=== PATIENT | male | born 1995 | race Caucasian/White ===

== ENCOUNTER 2021-03-20 15:40 | Emergency (ER) | payer SELFPAY ==
--- NOTE | ~2021-03-20 | CT_ITS ---
EXAMINATION: CT abdomen pelvis w con DATE: 03/20/2021 18:42 INDICATION: Abdominal pain. TECHNIQUE: Computed tomography (CT) of the abdomen and pelvis was performed with 100 mL Omnipaque 350 intravenous contrast. Automated exposure control and iterative reconstruction technique were employe d. The dose-length product was 215.36 mGy-cm. COMPARISON: None. FINDINGS: The visualized portions of the lung bases are clear without pneumonia or pleural effusion. The heart size is normal. No pericardial effusion. There is a 12 mm low-attenuation mass in right hep atic lobe. The gallbladder, spleen, pancreas, adrenal glands, and left kidney are normal. There is a 4 mm cyst in right kidney. There are no dilated loops of bowel. The appendix is not visualized. There are no pathologically enlarged lymph nodes. There is no free intraperitoneal fluid. There is a 10 mm sclerotic lesion in right femoral head, likely a benign bone island. IMPRESSION: 1. 12 mm liver mass, which may be benign or less likely malignant. Abdomen MRI without and with contr ast is recommended. Reviewed, dictated and finalized at location A. IMPRESSION: 1. 12 mm liver mass, which may be benign or less likely malignant. Abdomen MRI without and with contrast is recommended.
[2021-03-20 15:41] VITALS: BP 133/76; PULSE 120; RESP 18; TEMP 36.9; O2SAT 100
[2021-03-20 16:14] LABS: Basophils Percent Auto 0.3 % (0.2-1.2); Eosinophils Percent Auto 0.1 % (0-4.4); Hemoglobin 16.6 g/dL (14.0-18.0); Immature Granulocyte Absolute 0.08 K/mm3 (0.00-0.031); Immature Granulocyte Percent A 0.6 % (0-0.5); Lymphocytes Absolute Auto 1.61 K/mm3 (0.9-3.2); Lymphocytes Percent Auto 11.9 % (18.3-44.2); Mean Corpuscular HGB Conc 36.1 g/dl (32-36); Mean Corpuscular Hemoglobin 30.7 pg (26-34); Mean Corpuscular Volume 85.2 fl (80-100); Mean Platelet Volume 11.1 fl (7.4-10.4); Monocytes Percent Auto 7.5 % (2.6-8.5); Neutrophils Absolute Auto 10.8 K/mm3 (1.3-6.7); Neutrophils Percent Auto 79.6 % (45.5-73.1); Platelet Count Result 260 k/mm3 (150-375); Red Cell Distribution Width 12.2 % (11.5-14.5); White Blood Count 13.6 K/mm3 (4.5-10.0)
[2021-03-20 16:26] VITALS: BP 127/84; PULSE 89; RESP 18; O2SAT 98
--- NOTE | 2021-03-20 16:39 | PC.NURSE ---
Dr. Cordero at bedside for pt assessment.
[2021-03-20 16:48] VITALS: BP 137/92; PULSE 88; RESP 15; O2SAT 99
[2021-03-20 17:18] LABS: Alanine Aminotransferase 15 U/L (4-50); Albumin Level 4.9 g/dL (3.5-5.1); Alkaline Phosphatase 46 U/L (38-126); Anion Gap 10 mmol/L (8-16); Aspartate Amino Transferase 29 U/L (17-59); Bilirubin,Total 1.3 mg/dL (0.2-1.3); Blood Urea Nitrogen 14 mg/dL (9-20); Calcium 9.7 mg/dL (8.4-10.2); Carbon Dioxide 21 mmol/L (22-30); Chloride 105 mmol/L (98-107); Estimated CRCL calculation 151 ml/min; Estimated Glomerular Filt Rate > 60; Glucose 94 mg/dL (65-110); Lipase 50 U/L (23-300); Potassium 4.3 mmol/L (3.4-5.0); Sodium 136 mmol/L (137-145)
[2021-03-20 17:32] LABS: Add Urine Microscopic? YES; Amorphous Sediment Urine Few; Appearance Urine Turbid (Clear); Bacteria Urine Trace /hpf; Bilirubin Urine Negative (Negative); Blood Urine Negative (Negative); Color Urine Yellow (Yellow); Glucose Urine UA Negative (Negative); Ketones Urine 2+ mg/dL (Negative); Leukocyte Esterase Ur Negative LEU/UL (Negative); Mucus Urine Heavy /lpf; Nitrate Urine Negative (Negative); Protein Urine 2+ mg/dL (Negative)
[2021-03-20 17:37] VITALS: BP 114/75; PULSE 85; RESP 15; O2SAT 100
[2021-03-20] MEDS: SODIUM CHLORIDE 0.9% IV 1,000 ML 999 ML IV CONT (17:38)
[2021-03-20] MEDS: ONDANSETRON INJ 4 MG/2 ML VIAL IV PUSH (17:38)
[2021-03-20 18:08] LABS: Specific Grav Ur 1.033 (1.001-1.035)
--- NOTE | 2021-03-20 19:17 | PC.NURSE ---
Report given to JAYLEN Watkins.
--- NOTE | 2021-03-20 19:20 | ED.ABDPAIN ---
HPI - Abdominal Pain General Chief Complaint: Abdominal Pain Stated Complaint: N/V Time Seen by Provider: 03/20/21 16:30 Source: patient Mode of arrival: ambulatory Limitations: no limitations History of Present Illness HPI narrative: 25-year-old with no major problem here with complaints of nausea, vomiting and diarrhea and intermittent abdominal pain on and off for 1 week. Patient states his [id number] had similar symptoms which resolved 2 days ago. Patient states that he is unable to keep fluids down. However he states that he has taken his [id number] Zofran which helped him with his nausea. He denies alcohol use but uses marijuana on a regular basis his last use was 7 days ago. MD elicited complaint: abdominal pain Pertinent past history: none Onset (ago): week(s) (1) Pain Consistency: constant Location: diffuse Quality: cramping Migration to: no migration Exacerbating factors: nothing Relieving factors: nothing Context: confirms sick contacts Associated symptoms: nausea, vomiting and diarrhea Related Data Allergies Allergy/AdvReac Type Severity Reaction Status Date / Time No Known Allergies Allergy Verified 03/20/21 15:50 Review of Systems Review of Systems: All systems reviewed & are unremarkable except as noted in HPI and below Constitutional: Constitutional: Reports no additional constitutional complaints Eyes: Eyes: Reports no additional eye complaints ENT: Reports system reviewed and no additional complaints, except as documented Cardiovascular: Cardiovascular: Reports no additional cardiovascular complaints Respiratory: Respiratory: Reports no additional respiratory complaints Gastrointestinal: Gastrointestinal: Reports as per HPI Musculoskeletal: Musculoskeletal: Reports no additional musculoskeletal complaints Integumentary/Breasts: Skin/Breast: Reports system reviewed and no additional complaints, except as docu Exam Narrative: GENERAL: Well-appearing, well-nourished, and in no acute distress. HEAD: Normocephalic, atraumatic. EYES: PERRLA and EOMI. NECK: Supple. CHEST: Clear to auscultation. No respiratory distress. HEART: Regular rate and rhythm. No murmur heard. Normal peripheral pulses. ABDOMEN: Soft, nontender, nondistended, normal active bowel sounds. EXTREMITIES: Normal range of motion. No edema. SKIN: Warm, dry, no rash. NEURO: No focal deficits. Alert and oriented x3. PSYCH: Normal mood and affect. Course Course Emergency Course: Patient was given 1 L of normal saline, along with Zofran. His started feeling much better. He had no further episodes of nausea or vomiting. I discussed lab, CT findings with the patient and the family at bedside. Informed him about the lesion on his liver. Advised him to follow-up with his primary doctor or on-call doctor. Vital Signs Vital signs: Vital Signs Temperature 36.9 C 03/20/21 15:41 Pulse Rate 120 H 03/20/21 15:41 Respiratory Rate 18 03/20/21 15:41 Blood Pressure 133/76 03/20/21 15:41 Pulse Oximetry 100 03/20/21 15:41 Temperature 36.9 C 03/20/21 15:41 Pulse Rate 85 03/20/21 17:37 Respiratory Rate 15 03/20/21 17:37 Blood Pressure 114/75 03/20/21 17:37 Pulse Oximetry 100 03/20/21 17:37 MDM - Abdominal Pain Lab Data Result diagrams: 03/20/21 16:02 03/20/21 16:56 Labs: Lab Results 03/20/21 03/20/21 03/20/21 Range/Units 16:02 16:56 17:08 WBC 13.6 H (4.5-10.0) K/mm3 RBC 5.40 (4.6-6.20) M/mm3 Hgb 16.6 (14.0-18.0) g/dL Hct 46.0 (42.0-52.0) % MCV 85.2 (80-100) fl MCH 30.7 (26-34) pg MCHC 36.1 H (32-36) g/dl RDW 12.2 (11.5-14.5) % Plt Count 260 (150-375) k/mm3 MPV 11.1 H (7.4-10.4) fl Immature Gran % (Auto) 0.6 H (0-0.5) % Neut % (Auto) 79.6 H (45.5-73.1) % Lymph % (Auto) 11.9 L (18.3-44.2) % [place] % (Auto) 7.5 (2.6-8.5) % Eos % (Auto) 0.1 (0-4.4) % Baso % (Auto) 0.3 (0.2-1.2) %
[2021-03-20 19:45] VITALS: BP 112/74; PULSE 90; RESP 18; O2SAT 98
== END 2021-03-20 19:47 | disposition home or self-care (01) ==
PROVIDERS: Emergency Medicine; Emergency Provider Family Medicine
DX: K52.9 Noninfective gastroenteritis and colitis, unspecified (principal); R16.0 Hepatomegaly, not elsewhere classified
CPT/HCPCS: 36415; 74177; 80053; 81001; 83690; 85025; 96361; 96374; 99284; J2405; J7030; Q9967

== ENCOUNTER 2022-02-14 10:25 | Emergency (ER) | payer OTHER, SELFPAY ==
--- NOTE | ~2022-02-14 | CT_ITS ---
EXAMINATION: CT abdomen pelvis w con DATE: 02/14/2022 11:46 INDICATION: Right upper quadrant abdominal pain for a few days. Nausea and vomiting. TECHNIQUE: Computed tomography (CT) of the abdomen and pelvis was performed with 100 CC Omnipaque 350 intravenous contrast. Automated exposure control and iterative reconstruction technique were employe d. Exam dose: 215.91 mGy-cm total exam DLP. COMPARISON: 03/2021 CT abdomen pelvis FINDINGS: The lung bases are clear. Normal heart size. No pericardial or pleural effusion. Approximately 1.4 cm hemangioma of the right hepatic lobe. The liver, gallbladder, bile ducts, pancre as, pancreatic duct, spleen are otherwise unremarkable. Normal morphology of the adrenal glands. Indeterminate approximately 4 mm hypoenhancing lesion of the anterolateral aspect of the upper pole o f the right kidney, statistically most likely a small cyst No urinary tract calculus or hydroureteronephrosis. The urinary bladder and prostate gland and semina l vesicles are unremarkable. No bowel obstruction, bowel wall thickening, pneumatosis or intraperitoneal free air. The appendix is not clearly defined but no apparent appendicitis or inflammatory change in the right lower quadrant is noted. Normal caliber of the abdominal aorta. No intraperitoneal or retroperitoneal or pelvic mass lesion or adenopathy or ascites. Transitional lumbosacral vertebra. IMPRESSION: Approximately 1.4 cm right hepatic hemangioma Small right renal probable cyst Reviewed, dictated and finalized at [facility]. Reviewed, dictated and finalized at location B.
--- NOTE | 2022-02-14 10:30 | ED.ABDPAIN ---
HPI - Abdominal Pain General Chief Complaint: Abdominal Pain Stated Complaint: vomiting and abd pain since thursday Time Seen by Provider: 02/14/22 10:27 History of Present Illness HPI narrative: 26-year-old male presented emergency room complaints of abdominal pain associate with nausea. Patient states he was seen at an outside emergency room 2 days ago for the same problem, was told he was he had gastritis. Patient states that he feels like he is being punched in the abdomen. Patient denies any constipation or diarrhea. Related Data Allergies Allergy/AdvReac Type Severity Reaction Status Date / Time No Known Allergies Allergy Verified 03/20/21 15:50 Review of Systems Review of Systems: CONSTITUTIONAL: Denies fever, chills, or sweats. EYES: Denies visual changes, redness, or discharge. ENT: Denies rhinorrhea, congestion, sore throat, or otalgia. CARDIOVASCULAR: Denies chest pain, palpitations, or edema. RESPIRATORY: Denies cough or dyspnea. GASTROINTESTINAL: Reports abdominal pain and nausea GENITOURINARY: Denies dysuria or hematuria. SKIN: Denies rash or itching. MUSCULOSKELETAL: Denies back pain, joint pain, or myalgia. NEUROLOGIC: Denies headache, numbness, dizziness, or weakness. PSYCHIATRIC: Denies anxiety or depression. Exam Narrative: GENERAL: Well-appearing, well-nourished, no physical limitations, and in acute distress. HEAD: Normocephalic, atraumatic. EYES: Conjunctivae normal, PERRLA and EOMI. CHEST: Clear to auscultation. No respiratory distress. No wheezes rales or rhonchi. No tenderness. HEART: Regular rate and rhythm. No murmur heard. Normal peripheral pulses. ABDOMEN: Soft, periumbilical tenderness, nondistended, normal active bowel sounds. BACK: No CVA tenderness; No cervical/thoracic/lumbar tenderness, step-offs, bony abnormality; FROM EXTREMITIES: Normal range of motion. No edema. No clubbing or cyanosis SKIN: Warm, dry, no rash. No noted wounds NEURO: No focal deficits. Alert and oriented x3. MAEW. CN's II-XI intact bilaterally, normal gait PSYCH: Cooperative. Normal mood and affect. Course Vital Signs Vital signs: Vital Signs Temperature 36.4 C 02/14/22 10:37 Pulse Rate 91 02/14/22 10:37 Respiratory Rate 19 /01/22 10:37 Blood Pressure 125/97 H 02/14/22 10:37 Pulse Oximetry 100 02/14/22 10:37 Oxygen Delivery Room Air 02/14/22 10:37 Temperature 36.4 C 02/14/22 10:37 Pulse Rate 78 02/14/22 12:54 Respiratory Rate 02/14/22 12:54 Blood Pressure 109/64 02/14/22 12:54 Pulse Oximetry 100 02/14/22 12:54 Oxygen Delivery Room Air 02/14/22 10:37 MDM - Abdominal Pain MDM Narrative Medical decision making narrative: 26-year-old male presenting with abdominal pain. Exam was patient without peritoneal signs. No evidence of acute abdomen at this time. Patient is well-appearing. Given his work-up, is low suspicion for any acute hepatobiliary disease, acute pancreatitis, peptic ulcer disease, or any factious process. Presentation is not consistent with any acute, emergent cause of abdominal pain at this time. Lab Data Result diagrams: 02/14/22 11:01 02/14/22 11:01 Labs: Lab Results 02/14/22 02/14/22 02/14/22 Range/Units 11:01 11:01 12:01 WBC 11.6 H (4.5-10.0) K/mm3 RBC 4.74 (4.6-6.20) M/mm3 Hgb 14.7 (14.0-18.0) g/dL Hct 42.1 (42.0-52.0) % MCV 88.8 (80-100) fl MCH 31.0 (26-34) pg MCHC 34.9 (32-36) g/dl RDW 12.4 (11.5-14.5) % Plt Count 199 (150-375) k/mm3 MPV 11.4 H (7.4-10.4) fl Immature Gran % (Auto) 0.5 (0-0.5) % Neut % (Auto) 89.2 H (45.5-73.1) % Lymph % (Auto) 6.3 L (18.3-44.2) % [place] % (Auto) 3.8 (2.6-8.5) % Eos % (Auto) 0.0 (0-4.4) % Baso % (Auto) 0.2 (0.2-1.2) % Lymph # (Auto) 0.73 L (0.9-3.2) K/mm3 [place] # (Auto) 0.4 (0.1-0.6) K/mm3 Eos # (Auto) 0.0 (0-0.3) K/mm3 Baso # (Auto) 0.0 (0.0-0.1) K/mm3 Abs Immat Gra
[2022-02-14 10:37] VITALS: BP 125/97; PULSE 91; RESP 19; TEMP 36.4; O2SAT 100
[2022-02-14] MEDS: fentaNYL CITRATE INJ (*CRX) 100 MCG/2 ML VIAL 50 MCG IV PUSH (10:56)
[2022-02-14] MEDS: SODIUM CHLORIDE 0.9% IV 1,000 ML 999 ML IV CONT (10:57)
[2022-02-14] MEDS: ONDANSETRON INJ 4 MG/2 ML VIAL IV PUSH (10:57)
[2022-02-14 11:22] LABS: Basophils Percent Auto 0.2 % (0.2-1.2); Hematocrit 42.1 % (42.0-52.0); Hemoglobin 14.7 g/dL (14.0-18.0); Immature Granulocyte Absolute 0.06 K/mm3 (0.00-0.031); Immature Granulocyte Percent A 0.5 % (0-0.5); Immature Platelet Fraction Pct 8.4 % (0.9-11.2); Lymphocytes Absolute Auto 0.73 K/mm3 (0.9-3.2); Lymphocytes Percent Auto 6.3 % (18.3-44.2); Mean Corpuscular HGB Conc 34.9 g/dl (32-36); Mean Corpuscular Volume 88.8 fl (80-100); Mean Platelet Volume 11.4 fl (7.4-10.4); Monocytes Absolute Auto 0.4 K/mm3 (0.1-0.6); Monocytes Percent Auto 3.8 % (2.6-8.5); Neutrophils Absolute Auto 10.4 K/mm3 (1.3-6.7); Neutrophils Percent Auto 89.2 % (45.5-73.1); Platelet Count Result 199 k/mm3 (150-375); Red Blood Count 4.74 M/mm3 (4.6-6.20); Red Cell Distribution Width 12.4 % (11.5-14.5); White Blood Count 11.6 K/mm3 (4.5-10.0)
--- NOTE | 2022-02-14 11:26 | PC.NURSE ---
pt unable to provide urine sample at this time. pt declining straight cath.
[2022-02-14 11:28] LABS: Alanine Aminotransferase 16 U/L (6-50); Albumin Level 4.7 g/dL (3.5-5.1); Alkaline Phosphatase 54 U/L (38-126); Anion Gap 12 mmol/L (8-16); Aspartate Amino Transferase 21 U/L (17-59); Blood Urea Nitrogen 14 mg/dL (9-20); Calcium 9.1 mg/dL (8.4-10.2); Carbon Dioxide 20 mmol/L (22-30); Chloride 104 mmol/L (98-107); Estimated CRCL calculation 130 ml/min; Estimated Glomerular Filt Rate > 60; Glucose 109 mg/dL (65-110); Lipase 84 U/L (23-300); Potassium 3.8 mmol/L (3.4-5.0); Sodium 136 mmol/L (137-145)
[2022-02-14 12:36] LABS: Mucus Urine Rare /lpf; Squamous Epithelial Cell Urine Rare /hpf (Few)
[2022-02-14 12:44] LABS: Add Urine Microscopic? YES; Appearance Urine Clear (Clear); Bilirubin Urine Negative (Negative); Blood Urine Negative (Negative); Color Urine Yellow (Yellow); Glucose Urine UA Negative (Negative); Ketones Urine 2+ mg/dL (Negative); Leukocyte Esterase Ur Negative LEU/UL (Negative); Nitrate Urine Negative (Negative); Protein Urine Negative (Negative); Urobilinogen Urine 0.2 mg/dL (<2.0); pH Urine 7.5 (5.0-9.0)
[2022-02-14 12:54] VITALS: BP 109/64; PULSE 78; RESP 19; O2SAT 100
[2022-02-14] MEDS: METOCLOPRAMIDE HCL INJ 10 MG/2 ML VIAL IV PUSH (13:15)
[2022-02-14] MEDS: diphenhydrAMINE HCl INJ 50 MG/ML VIAL 25 MG IV PUSH (13:15)
[2022-02-14] MEDS: DICYCLOMINE HCL INJ 20 MG/2 ML VIAL IM (13:16)
[2022-02-14 13:46] VITALS: BP 103/51; PULSE 84; RESP 18; O2SAT 98
== END 2022-02-14 13:48 | disposition home or self-care (01) ==
PROVIDERS: Emergency Provider Nurse Practitioner Family; PCP Family Medicine
DX: R10.9 Unspecified abdominal pain (principal)
CPT/HCPCS: 36415; 74177; 80053; 81001; 83690; 85025; 85055; 96361; 96372; 96374; 96375; 99284; J0500; J1200; J2405; J2765; J3010; J7030; Q9967

== ENCOUNTER 2022-03-12 09:03 | Emergency (ER) | payer BC, OTHER, SELFPAY ==
--- NOTE | ~2022-03-12 | CT_ITS ---
EXAMINATION: CT abdomen pelvis w con DATE: 03/12/2022 10:07 INDICATION: Right-sided abdomen pain. TECHNIQUE: Computed tomography (CT) of the abdomen and pelvis was performed with 100 cc Omnipaque 300 intravenous contrast. The dose-length product was 186.66 mGy-cm. Automated exposure control and iter ative reconstruction technique were employed. COMPARISON: CT dated 02/14/2022 FINDINGS: Heart size is normal. Stable low-density lesion right hepatic lobe with peripheral nodular enhancement, most likely benign hemangioma in the absence of known malignancy. The spleen, pancreas, adrenal glands and kidneys are unremarkable. Gallbladder is present. Nonobstructive bowel gas pattern . No significant vascular abnormality. No lymphadenopathy. No free air or free fluid. No evidence for hernia. Gallbladder is present. The appendix is not positively visualized. There is no pericecal in flammatory change to suggest appendicitis. IMPRESSION: 1. No acute abdominal abnormality. Reviewed, dictated and finalized at location A.
[2022-03-12 09:06] VITALS: BP 132/86; PULSE 62; RESP 16; TEMP 36.6; O2SAT 99
--- NOTE | 2022-03-12 09:18 | ED.NAVMDI ---
HPI - Nausea/Vomiting/Diarrhea General Chief complaint: Nausea/Vomiting/Diarrhea Stated complaint: vomiting with blood Time Seen by Provider: 03/12/22 09:05 History of Present Illness HPI Narrative: 26-year-old male presents the emergency room with a sudden onset of epigastric pain associated with nausea and vomiting. Patient has been seen in this ER for similar symptoms approximately 3 and half weeks ago. Patient states that he took a Reglan and Bentyl tablets prior to arrival. Denies diarrhea or constipation. Denies fever. Related Data Home Medications Medication Instructions Recorded Confirmed sertraline 50 mg tablet 25 mg 03/12/22 Allergies Allergy/AdvReac Type Severity Reaction Status Date / Time No Known Allergies Allergy Verified 03/12/22 09:13 Review of Systems Review of Systems: CONSTITUTIONAL: Denies fever, chills, or sweats. EYES: Denies visual changes, redness, or discharge. ENT: Denies rhinorrhea, congestion, sore throat, or otalgia. CARDIOVASCULAR: Denies chest pain, palpitations, or edema. RESPIRATORY: Denies cough or dyspnea. GASTROINTESTINAL: Reports abdominal pain, nausea, vomiting GENITOURINARY: Denies dysuria or hematuria. SKIN: Denies rash or itching. MUSCULOSKELETAL: Denies back pain, joint pain, or myalgia. NEUROLOGIC: Denies headache, numbness, dizziness, or weakness. PSYCHIATRIC: Denies anxiety or depression. Exam Narrative: GENERAL: Well-appearing, well-nourished, no physical limitations, and in no acute distress. HEAD: Normocephalic, atraumatic. EYES: Conjunctivae normal, PERRLA and EOMI. CHEST: Clear to auscultation. No respiratory distress. No wheezes rales or rhonchi. No tenderness. HEART: Regular rate and rhythm. No murmur heard. Normal peripheral pulses. ABDOMEN: Soft, epigastric tenderness, nondistended, normal active bowel sounds. BACK: No CVA tenderness EXTREMITIES: Normal range of motion. No edema. No clubbing or cyanosis SKIN: Warm, dry, no rash. No noted wounds NEURO: No focal deficits. Alert and oriented x3. MAEW. CN's II-XI intact bilaterally, normal gait PSYCH: Cooperative. Normal mood and affect. Course Vital Signs Vital signs: Vital Signs Temperature 36.6 C 03/12/22 09:06 Pulse Rate 62 03/12/22 09:06 Respiratory Rate 16 03/12/22 09:06 Blood Pressure 132/86 03/12/22 09:06 Pulse Oximetry 99 03/12/22 09:06 Oxygen Delivery Room Air 03/12/22 09:06 Temperature 36.6 C 03/12/22 09:06 Pulse Rate 62 03/12/22 09:06 Respiratory Rate 16 03/12/22 09:06 Blood Pressure 132/86 03/12/22 09:06 Pulse Oximetry 99 03/12/22 09:06 Oxygen Delivery Room Air 03/12/22 09:06 MDM - Nausea/Vomiting/Diarrhea MDM Narrative Medical decision making narrative: 26-year-old male presents the emergency room for sudden onset of epigastric pain associate with nausea and vomiting. CT scan showed no signs of acute intra-abdominal abnormality. Patient responded well to a liter of fluid and a GI cocktail. CBC shows a slight leukocytosis, which was likely due to the nausea and vomiting. Patient is also mildly hypokalemic, which was replaced with p.o. potassium. No signs of hepatobiliary disease or infectious processes. Will have patient follow-up with GI. Lab Data Result diagrams: 03/12/22 09:12 03/12/22 09:12 Labs: Lab Results 03/12/22 03/12/22 03/12/22 Range/Units 09:12 09:12 09:20 WBC 13.5 H (4.5-10.0) K/mm3 RBC 4.77 (4.6-6.20) M/mm3 Hgb 14.7 (14.0-18.0) g/dL Hct 42.0 (42.0-52.0) % MCV 88.1 (80-100) fl MCH 30.8 (26-34) pg MCHC 35.0 (32-36) g/dl RDW 12.4 (11.5-14.5) % Plt Count 209 (150-375) k/mm3 MPV 11.2 H (7.4-10.4) fl Immature Gran % (Auto) 0.4 (0-0.5) % Neut % (Auto) 87.9 H (45.5-73.1) % Lymph % (Auto) 7.5 L (18.3-44.2) % [place] % (Auto) 3.9 (2.6-8.5) % Eos % (Auto) 0.1 (0-4.4) % Baso % (Auto) 0.2 (0.2-1.2) % Lymph # (Auto)
[2022-03-12 09:21] LABS: Basophils Percent Auto 0.2 % (0.2-1.2); Eosinophils Percent Auto 0.1 % (0-4.4); Hemoglobin 14.7 g/dL (14.0-18.0); Immature Granulocyte Absolute 0.06 K/mm3 (0.00-0.031); Immature Granulocyte Percent A 0.4 % (0-0.5); Lymphocytes Absolute Auto 1.01 K/mm3 (0.9-3.2); Lymphocytes Percent Auto 7.5 % (18.3-44.2); Mean Corpuscular Hemoglobin 30.8 pg (26-34); Mean Corpuscular Volume 88.1 fl (80-100); Mean Platelet Volume 11.2 fl (7.4-10.4); Monocytes Absolute Auto 0.5 K/mm3 (0.1-0.6); Monocytes Percent Auto 3.9 % (2.6-8.5); Neutrophils Absolute Auto 11.9 K/mm3 (1.3-6.7); Neutrophils Percent Auto 87.9 % (45.5-73.1); Platelet Count Result 209 k/mm3 (150-375); Red Blood Count 4.77 M/mm3 (4.6-6.20); Red Cell Distribution Width 12.4 % (11.5-14.5); White Blood Count 13.5 K/mm3 (4.5-10.0)
[2022-03-12 09:32] LABS: Alanine Aminotransferase 21 U/L (6-50); Albumin Level 4.8 g/dL (3.5-5.1); Alkaline Phosphatase 52 U/L (38-126); Anion Gap 14 mmol/L (8-16); Aspartate Amino Transferase 21 U/L (17-59); Bilirubin,Total 0.9 mg/dL (0.2-1.3); Blood Urea Nitrogen 14 mg/dL (9-20); Carbon Dioxide 20 mmol/L (22-30); Chloride 104 mmol/L (98-107); Estimated CRCL calculation 117 ml/min; Estimated Glomerular Filt Rate > 60; Glucose 122 mg/dL (65-110); Lipase 86 U/L (23-300); Potassium 3.3 mmol/L (3.4-5.0); Sodium 138 mmol/L (137-145)
[2022-03-12] MEDS: PANTOPRAZOLE SODIUM IV 40 MG VIAL IV PUSH (09:32)
[2022-03-12] MEDS: SODIUM CHLORIDE 0.9% IV 1,000 ML 999 ML IV CONT (09:32)
[2022-03-12] MEDS: ONDANSETRON INJ 4 MG/2 ML VIAL IV PUSH (09:32)
[2022-03-12 09:39] LABS: Appearance Urine Cloudy (Clear); Bilirubin Urine Negative (Negative); Blood Urine Negative (Negative); Color Urine Yellow (Yellow); Glucose Urine UA Negative (Negative); Ketones Urine 1+ mg/dL (Negative); Leukocyte Esterase Ur Negative LEU/UL (Negative); Nitrate Urine Negative (Negative); Protein Urine Trace mg/dL (Negative); Specific Grav Ur 1.025 (1.001-1.035); Urobilinogen Urine 0.2 mg/dL (<2.0)
[2022-03-12 09:48] LABS: Bacteria Urine Trace /hpf; Mucus Urine Heavy /lpf
[2022-03-12 10:09] LABS: Add Urine Microscopic? YES
[2022-03-12 10:19] LABS: Amphetamine Screen Urine Negative (Negative); Barbiturate Screen Urine Negative (Negative); Benzodiazepines Screen Urine Negative (Negative); Cannabinoid Screen Urine Positive (Negative); Cocaine Screen Urine Negative (Negative); Methadone Screen Urine Negative (Negative); Opiate Screen Urine Negative (Negative); Phencyclidine Screen Urine Negative (Negative)
[2022-03-12] MEDS: BELLADONNA ALK/PHENOB ELIX 10 ML, MAG HYDROX/ALUMINUM HYD/SIMETH 30 ML, LIDOCAINE HCL 2... PO (10:24)
[2022-03-12 11:15] VITALS: BP 102/57; PULSE 82; RESP 16; O2SAT 98
[2022-03-12] MEDS: POTASSIUM CHLORIDE 20 MEQ PACKET (FOR LIQUID) 40 MEQ PO (11:24)
[2022-03-12 11:43] VITALS: BP 110/60; PULSE 83; RESP 16; O2SAT 98
--- NOTE | 2022-03-12 11:45 | PC.NURSE ---
Entered room patient moaning and rocking back and forth in pain. After patient was discharged the patient stood up and walked out of the room appearing to be in no distress and complaining of no pain at that time.
== END 2022-03-12 11:43 | disposition home or self-care (01) ==
PROVIDERS: Emergency Medicine; Emergency Provider Nurse Practitioner Family; PCP Family Medicine
DX: R10.9 Unspecified abdominal pain (principal); R11.2 Nausea with vomiting, unspecified
CPT/HCPCS: 36415; 74177; 80053; 80307; 81001; 83690; 85025; 87086; 96361; 96374; 96375; 99284; A9270; C9113; J2405; J7030; Q9967

== ENCOUNTER 2022-12-28 10:37 | Emergency (ER) | payer OTHER, SELFPAY ==
[2022-12-28 10:52] VITALS: BP 108/70; PULSE 92; RESP 16; TEMP 36.6; O2SAT 99
[2022-12-28 11:14] LABS: Basophils Percent Auto 0.2 % (0.2-1.2); Hematocrit 45.7 % (42.0-52.0); Hemoglobin 15.8 g/dL (14.0-18.0); Immature Granulocyte Absolute 0.04 K/mm3 (0.00-0.031); Immature Granulocyte Percent A 0.3 % (0-0.5); Lymphocytes Absolute Auto 1.04 K/mm3 (0.9-3.2); Lymphocytes Percent Auto 8.9 % (18.3-44.2); Mean Corpuscular HGB Conc 34.6 g/dl (32-36); Mean Corpuscular Hemoglobin 30.9 pg (26-34); Mean Corpuscular Volume 89.3 fl (80-100); Mean Platelet Volume 11.1 fl (7.4-10.4); Monocytes Absolute Auto 0.5 K/mm3 (0.1-0.6); Monocytes Percent Auto 4.4 % (2.6-8.5); Neutrophils Absolute Auto 10.1 K/mm3 (1.3-6.7); Neutrophils Percent Auto 86.2 % (45.5-73.1); Platelet Count Result 242 k/mm3 (150-375); Red Blood Count 5.12 M/mm3 (4.6-6.20); Red Cell Distribution Width 12.1 % (11.5-14.5); White Blood Count 11.7 K/mm3 (4.5-10.0)
--- NOTE | 2022-12-28 11:25 | PC.NURSE ---
Pt rolling and thrashing on stretcher, moaning in pain. Pt states he can't urinate because hes dehydrated
[2022-12-28 11:26] LABS: Alanine Aminotransferase 25 U/L (6-50); Albumin Level 5.4 g/dL (3.5-5.1); Alkaline Phosphatase 57 U/L (38-126); Anion Gap 11 mmol/L (8-16); Aspartate Amino Transferase 28 U/L (17-59); Bilirubin,Total 0.8 mg/dL (0.2-1.3); Blood Urea Nitrogen 10 mg/dL (9-20); Calcium 10.3 mg/dL (8.4-10.2); Carbon Dioxide 25 mmol/L (22-30); Chloride 103 mmol/L (98-107); Estimated CRCL calculation 133 ml/min; Estimated Glomerular Filt Rate > 60; Glucose 112 mg/dL (65-110); Lipase 71 U/L (23-300); Potassium 4.1 mmol/L (3.4-5.0); Sodium 139 mmol/L (137-145)
[2022-12-28] MEDS: BELLADONNA ALK/PHENOB ELIX 10 ML, MAG HYDROX/ALUMINUM HYD/SIMETH 30 ML, LIDOCAINE HCL 2... PO (12:16)
--- NOTE | 2022-12-28 12:29 | ED.ABDPAIN ---
HPI - Abdominal Pain General Chief Complaint: Abdominal Pain Stated Complaint: ABD PAIN Time Seen by Provider: 12/28/22 11:09 History of Present Illness HPI narrative: 27-year-old male with a history of gastritis presented to the emergency department for evaluation of worsening epigastric pain that started last night after eating [place]. Patient states he did attempt to take Tums and Prilosec for the pain with no significant improvement. Related Data Home Medications Medication Instructions Recorded Confirmed sertraline 50 mg tablet 25 mg 03/12/22 Allergies Allergy/AdvReac Type Severity Reaction Status Date / Time No Known Allergies Allergy Verified 03/12/22 09:13 Review of Systems Review of Systems: All systems reviewed & are unremarkable except as noted in HPI and below Exam Narrative: APPEARANCE: Distressed appearing upon arrival HEAD: normocephalic, atraumatic. EYES: PERRLA/EOMI, conjunctivae clear. NOSE: Normal no drainage NECK: Supple. No adenopathy, no masses. RESPIRATORY: Airway patent, respirations nonlabored. Clear to auscultation bilaterally, no rales, rhonchi, wheezing. CARDIOVASCULAR: Regular rate and rhythm without murmurs rubs or gallops. ABDOMINAL: Epigastric tenderness with no peritonitis MUSCULOSKELETAL: Moves all extremities. Strength/ROM intact, No edema, No calf tenderness. NEURO: Alert. Cranial nerves II through XII intact. Grossly intact SKIN: Warm, dry. Normal Color Course Course Emergency Course: 27-year-old male presented to ED for evaluation of epigastric pain. Patient's pain was completely resolved after a GI cocktail. On reexamination patient has no tenderness to palpation. Patient was afebrile but did have a leukocytosis of 11.7. Patient's CMP was within normal limits. Patient and family were updated on the results of the work-up and results of the exam. Patient does have follow-up scheduled with GI in March but he will be given follow-up with our GI physicians to see if he can get in earlier. Patient states he does take Prilosec 40 mg daily. Patient will also be prescribed Carafate and patient was recommended dietary changes. All questions and concerns were addressed. Patient family are comfortable with the plan for discharge and close follow-up. Vital Signs Vital signs: Vital Signs Temperature 97.9 F 12/28/22 10:52 Pulse Rate 92 12/28/22 10:52 Respiratory Rate 16 12/28/22 10:52 Blood Pressure 108/70 12/28/22 10:52 Pulse Oximetry 99 12/28/22 10:52 Oxygen Delivery Room Air 12/28/22 10:52 Temperature 97.9 F 12/28/22 10:52 Pulse Rate 92 12/28/22 10:52 Respiratory Rate 16 12/28/22 10:52 Blood Pressure 108/70 12/28/22 10:52 Pulse Oximetry 99 12/28/22 10:52 Oxygen Delivery Room Air 12/28/22 10:52 MDM - Abdominal Pain Differential Diagnosis Differential diagnosis: Likely abdominal pain and gastroenteritis Lab Data Attestation: I reviewed the patient's lab results. 12/28/22 11:06 12/28/22 11:06 Labs: Lab Results 12/28/22 Range/Units 11:06 WBC 11.7 H (4.5-10.0) K/mm3 RBC 5.12 (4.6-6.20) M/mm3 Hgb 15.8 (14.0-18.0) g/dL Hct 45.7 (42.0-52.0) % MCV 89.3 (80-100) fl MCH 30.9 (26-34) pg MCHC 34.6 (32-36) g/dl RDW 12.1 (11.5-14.5) % Plt Count 242 (150-375) k/mm3 MPV 11.1 H (7.4-10.4) fl Immature Gran % (Auto) 0.3 (0-0.5) % Neut % (Auto) 86.2 H (45.5-73.1) % Lymph % (Auto) 8.9 L (18.3-44.2) % [place] % (Auto) 4.4 (2.6-8.5) % Eos % (Auto) 0.0 (0-4.4) % Baso % (Auto) 0.2 (0.2-1.2) % Lymph # (Auto) 1.04 (0.9-3.2) K/mm3 [place] # (Auto) 0.5 (0.1-0.6) K/mm3 Eos # (Auto) 0.0 (0-0.3) K/mm3 Baso # (Auto) 0.0 (0.0-0.1) K/mm3 Abs Immat Gran (auto) 0.04 H (0.00-0.031) K/mm3 Absolute Neuts (auto) 10.1 H (1.3-6.7) K/mm3 Absolute Nucleated RBC 0.0 (0.0-0.012) K/mm3 Nucleated RBC % 0.0 (0.0-0.2) % Sodium 139 (137-145) mmol/
[2022-12-28] MEDS: PANTOPRAZOLE SODIUM IV 40 MG VIAL IV PUSH (13:24)
== END 2022-12-28 13:30 | disposition home or self-care (01) ==
PROVIDERS: Emergency Provider Emergency Medicine; PCP Family Medicine
DX: K29.70 Gastritis, unspecified, without bleeding (principal)
CPT/HCPCS: 36415; 80053; 83690; 85025; 96374; 99284; A9270; C9113

== ENCOUNTER 2025-01-09 19:21 | Emergency (ER) | payer OTHER, SELFPAY ==
--- OUTSIDE RECORDS SUMMARY | 2025-01-09 19:23 | XMS_ITS | Continuity of Care Document ---
Author Organization [facility] Address [address] [place] [address] Phone Care Team Providers Care Delivery Sales Worker Name Role Phone Unavailable Unavailable Unavailable Allergies, Adverse Reactions, Alerts Substance Reaction Status Criticality No Known Allergies Active No Inform ation Medications Medication Instructions Dosage Effective Dates (start - stop) Status Comments citalopram 20 mg tablet take 1 tablet by oral route every day 20 MG - Active Procedures Procedure Date OFFICE/OUTPATIENT VISIT, [facility] Advance Directives Directive Yes / No Effective Date File Name No Information Encounters Encounter Description Practice Location Reason(s) For Visit Diagnoses Date Provider Providers Copied on Encounter [facility], [address] [place] [address], tel:[phone] [facility] No Information 5 No Information [facility], [address] [place] [address], tel:[phone] [facility] No Information No Information OFFICE/OUTPAT IENT VISIT, [facility], [address] [place] [address], tel:[phone] [facility] TALK/ FOCUS PROBLEMS (chief complaint) Moderate anger reaction 5 No Information Family History Family Member Type Diagnosis Age At Onset Mother Problem (finding) Anxiety Mother Problem (finding) depression Payers Payer name Insurance type Covered democrat ID Authoriza tion(s) No Information Social History Type Description Quantity Date Captured Comments Sex Male Smoking Status No Information Chief Complaint And Reason For Visit No Information Reason For Referral Reason For Referral No Information History Of Present Illness Encounter Date Complaint History Of Prese nt Illness TALK/ FOCUS PROBLEMS The symptom s began 5 years ago and generally lasts 5 Years. Patients mother thinks he needs to get back on his ADHD medications which he went off of about 8 years ago. She states it is progressively getting worse with his attitude and dealing with certain things. ( Pt has trouble controlling his anger. He denied any thoughts of hurting self or others.) Functional Status Date Functional Assessmen t No Information Instructions Date Instruction Additional Infor yoly given family hx of a nxiety/depression, will start celexa. Related to Moderate anger reaction counseled pt regardi ng common side effects. f.u next month Related to Moderate anger reaction Assessments Type Assessment Date No Information Patient Care Teams Name Effective Dates (start - stop) Status Members No Information
--- OUTSIDE RECORDS SUMMARY | 2025-01-09 19:23 | XMS_ITS | Continuity of Care Document ---
Author Organization [facility] Address [address] [place] [address] [place] [address] Phone Care Team Providers Care Car Porter Name Role Phone Raheem Gordon DO Unavailable Unavailable Advance Directives Directive Yes / No Effective Date File Name No Information Encounters Encounter Description Practice Location Reason(s) For Visit Diagnoses Date Provider Providers Copied on Encounter [facility], [address], [place], [place], [id number], [place] tel:[phone] [facility] No Information Heidi Hayes. [address] [facility], [place], [address], [place]. tel: [phone] Family History Family Member Type Diagnosis Age At Onset No Information Payers Payer name Insurance type Covered libertarian ID Authoriza tion(s) Medicaid [facility] [id number] Social History Type Description Quantity Date Captured Comments Sex Male Smoking Status No Information Chief Complaint And Reason For Visit No Information Reason For Referral Reason For Referral No Information History Of Present Illness Encounter Date Complaint History Of Prese nt Illness No Information Functional Status Date Functional Assessmen t No Information Instructions Date Instruction Additional Infor mation No Information Assessments Type Assessment Date No Information Patient Care Teams Name Effective Dates (start - stop) Status Members No Information
--- OUTSIDE RECORDS SUMMARY | 2025-01-09 19:23 | XMS_ITS | Clinical Summary ---
Author Organization [facility] Care Team Providers Care Lime Mixer Name Role Phone Unavailable Primary Care Provider Unavailabl e Social History Tobacco Use Types Packs/Day Years Used Date Smoking Tobacco: Never Assessed Sex and Gender Information Value Date Recorded Sex Assigned at Not on file Legal Sex Male 9:15 AM CDT Gender Identity Not on file Sexual Orientation Not on file Plan of Treatment Health Maintenance Due Date Last Done Comments Hepatitis C Virus (HCV) Screening 1993 Hepatitis B Immunization (1 of 3 - 19+ 3-dose series) 2012 Influenza Immunization (#1) 2024 SARS-COV-2 Immunization ( - 2023- season) 2024 Respiratory Syncytial Virus (RSV) Immunization (Adult) (1 - 1-dose 75+ series) 2068 DTaP/Tdap/Td Immunization Discontinued 05/31/2010 TdaP Immunization Completed 05/31/2010 Meningococcal Immunization (ACWY) Aged Out No longer eligible based on patient's age to complete this topic Pneumococcal Immunization Combined Aged Out No longer eligible b ased on patient's age to complete this topic Rotavirus Immunization Aged Out No lo nger eligible based on patient's age to complete this topic
--- OUTSIDE RECORDS SUMMARY | 2025-01-09 19:23 | XMS_ITS | Data Portability ---
Author Organization [place] [facility] autoContract - [facility] [place] Address [address] [place] [address] Care Team Providers Care Electronic Prepress Technician Name Role Phone FILIBERTO BROWNE Primary Care Provider [phone] Assessment Encounter Date Assessment Date Assessment LastModified by Organization Details LastModified Time 07/08/2024 07/08/2024 Pt here with below diagnosis - pt here for evaluation for their condition, evaluation of their medication use, and discussion for alternative treatments. The documentation details a telehealth encounter with the patient on this date of service. Audio and video communications were used during this encounter to provide a uieu-af-txqa interactive encounter. Components of this encounter are a culmination of visual and patient-assisted findings. [email or web address] Not available 07/08/2024 15:02:55 07/11/2024 07/11/2024 Pt being seen today for follow up visit. We discussed patients future use of MMJ. We discussed the risks and benefits. Pt understands that we will certify them, but the recommendation does not constitute a prescription for medical cannabis. The documentation details a telehealth encounter with the patient on this date of service. Audio and video communications were used during this encounter to provide a iofx-xi-pieq interactive encounter. Components of this encounter are a culmination of visual and patient-assisted findings. [email or web address] Not available 07/11/2024 10:37:52 Plan of Treatment Reminders Order Date Submit Date Provider Last Modified By Organization Details Last Modified Time Details Appointments None record ed. Lab None record ed. Referral None record ed. Procedures None record ed. Surgeries None record ed. Imaging None record ed. Medication Orders None record ed. Patient TargetsNo targets recorded. Patient Instructions Encounter Date Encounter Id Patient Instructions Last Modified By Organization Details Last Modified Time 07/08/2024 [id number] I have discussed the risks and benefits of Medical Marijuana. Pt understands I am not prescribing this medication. I am certifying that this patient has a condition that is recognized by the state as qualifying for medical marijuana and this recommendation does not constitute a prescription for medical cannabis. Pt understands that my physician written certification form does not guarantee Medical Marijuana certification nor does it endorse the patient as needing medical marijuana. Patient understands that Medical Marijuana is a drug that the federal government has classified cannabis as a Schedule I controlled substance. Schedule 1 substances are defined, in part, as having (1) a high potential for abuse; (2) no currently accepted medical use in treatment in the [place]; and (3) a lack of accepted Safety for use under medical supervision. Federal law prohibits the manufacture, distribution and possession of cannabis even in states, which have modified their state laws to treat cannabis as a medicine. Pt also agrees that me, and the [facility] [place] are my treating physicians and that we are in charge of treating the patient's conditions and that the patient will make a good alex effort to remain under my treatment plan and acknowledge there will be follow up visits from this date forward to monitor the patient's condition. Discussed risks and benefits of Medical Marijuana. I have spent a total of 35 mins discussing the patient's condition, pain/medical management of the patient given their debilitating condition, the risks and benefits of this medication, a history and physical, gathering old medical records to look at the disease processes being evaluated, and answering of all questions. [email or web address] Not available 07/08/2024 15:02:55 07/11/2024 [id number] I have discussed the risks and benefits of Medical Marijuana. Pt understands I am not prescribing this medication. I am certifying that this patient has a condition that is recognized by the state as qualifying for medical marijuana and this recommendation does not constitute a prescription for medical cannabis. Pt understands that my physician written certification form does not guarantee Medical Marijuana certification nor does it endorse the patient as needing medical marijuana. Patient understands that Medical Marijuana is a drug that the federal government has classified cannabis as a Schedule I controlled substance. Schedule 1 substances are defined, in part, as having (1) a high potential for abuse; (2) no currently accepted medical use in treatment in the [place]; and (3) a lack of accepted Safety for use under medical supervision. Federal law prohibits the manufacture, distribution and possession of cannabis even in states, which have modified their state laws to treat cannabis as a medicine. Pt also agrees that me, and the [facility] are my treating physicians and that we are in charge of treating the patient's conditions and that the patient will make a good alex effort to remain under my treatment plan and acknowledge there will be follow up visits from this date forward to monitor the patient's condition. Discussed risks and benefits of Medical Marijuana. I have spent a total of 35 mins discussing the patient's condition, pain/medical management of the patient given their debilitating condition, the risks and benefits of this medication, a history and physical, gathering old medical records to look at the disease processes being evaluated, and answering of all questions. [email or web address] Not available 07/11/2024 10:37:52 Reason for Referral None Reported. Medical Equipment None Reported. Allergies No known drug allergies Medications Name Sig Start Date Stop Date Status Note LastModified by Organization Details LastModified Time trazodone 50 mg tablet active Not Available Not Available No t Available sucralfate 100 mg/mL oral suspension active Not Available Not Available N ot Available clonazepam 1 mg tablet active Not Available Not Available No t Available omeprazole 40 mg capsule,delay ed release active Not Available Not Available N ot Available quetiapine 100 mg tablet active Not Available Not Availabl e Not Available dicyclomine 20 mg tablet active Not Available Not Available Not Available paroxetine 20 mg tablet active Not Available Not Available No t Available pantoprazole 40 mg tablet,delaye d release TAKE 1 TABLET BY MOUTH EVERY DAY 30 MINUTES BEFORE BREAKFAST active Not Available Not Available No t Available zolpidem 5 mg tablet active Not Available Not Available Not Available zolpidem 10 mg tablet active Not Available Not Available No t Available amoxicillin 875 mg-potassium clavulanate 125 mg tablet TAKE 1 TABLET BY MOUTH TWICE DAILY active Not Available Not Available No t Available quetiapine 50 mg tablet active Not Available Not Available No t Available Vitals None Recorded Social History None recorded. Functional Status None recorded. Mental Status None recorded. Family History Nothing Reported. Medical History No medical history recorded. Past Encounters Encounter ID Performer Location Encounter Start Date Encounter Closed Date Diagnosis/Indication Diagnosis SNOMED-CT Code Diagnosis ICD10 Code Diagnosis Note [id number] Toby Oakes MD [facility] [address] [place] [address] 07/08/2024 11:28:50 07/08/2024 15:28:26 Posttraumatic stress disorder 13465679 F43.10 [id number] DEE [facility] [address] [place] [address] 07/11/2024 10:18:50 07/11/2024 10:39:46 Posttraumatic stress disorder 56303303 F43.10 Health Concerns Section Related Observation LastModified by Organization Detai ls LastModified Time None Recorded Concern Status LastModified by Organization Details LastModified Time None Recorded Advance Directives Directive None Recorded Payers Insurance Date Sequence Insurance Name Policy Number Policy Park Covered Member ID Park Member ID Guarantor Name 07/07/2024 1 *SELF PAY* Aa tom Cassidy Notes Date Note Type Note Provider Name and Address Organization Details Recorded Time 07/08/2024 text/html The patient woul d like to discuss medications, the disease, and how to handle it. Pt would also like to discuss alternative treatments to this condition. Pt was referred here for further evaluation and treatment if necessary. Patient has a diagnosis of qualifying condition - PTSD IBS VANESSA LAMAR PA-C [address], [address], [place], [address], [facility] 07/08/2024 15:05:17 07/11/2024 text/html Pt saw the Provider to discuss medications, the disease, and how to handle it. Also discussed alternative treatments to this condition. Pt was referred here for further evaluation and treatment if necessary. PTSD Pt now presents for their 2nd visit to discuss the condition and develop a patient-provider relationship. We discussed the above and future use of medical cannabis. DEE Callahan [address], [address], [place], [address], [facility] 07/11/2024 10:38:23
--- NOTE | 2025-01-09 19:52 | PC.NURSE ---
1941-PATIENT WAS SEEN AND DISCHARGED FROM [facility] TODAY WITH DIAGNOSIS OF NONINFECTIVE GASTROENTERITIS AND COLITIS, UNSPECIFIED. PATIENT ARRIVED PER EMS WITH CONTINUED C/O ABDOMEN PAIN. STATES I CAN'T TAKE THE PAIN ANYMORE AND I WANT YOU TO KNOCK ME OUT. PATIENT DEMANDS IMMEDIATE BED PLACEMENT IN THE ED. STATES HE CAN'T BE SITTING IN A WHEELCHAIR. EXPLAINED TO PATIENT AT CURRENT TIME, ED WAS FULL AND NO IMMEDIATE BED WAS AVAILABLE. PATIENT STATES I WANT TO GO HOME THEN. I'LL JUST TAKE MY MEDICATIONS AND GO TO SLEEP. ENCOURAGE PATIENT TO REMAIN AND WAIT BUT PATIENT ADAMANT ABOUT GOING HOME. EMS IV DISCONTINUED AND PRESSURE DRESSING APPLIED.
--- OUTSIDE RECORDS SUMMARY | 2025-01-09 19:54 | XMS_ITS | Clinical Summary ---
Author Organization [facility] Care Team Providers Care Product Line Manager Name Role Phone Unavailable Primary Care Provider [...]
--- OUTSIDE RECORDS SUMMARY | 2025-01-09 19:54 | XMS_ITS | Continuity of Care Document ---
Author Organization [facility] Address [address] [place] [address] [place] [address] Phone Care Team Providers Care English Tutor Name Role Phone Raheem Gordon DO Unavailable Unavailable Advance Directives Directive Yes / No Effective Date File Name No Information Encounters Encounter Description Practice Location Reason(s) For Visit Diagnoses Date Provider Providers Copied on Encounter [facility], [address], [place], [place], [id number], [place] tel:[phone] [facility] No Information Heidi Hayes. [address] [facility], [place], [address], [place]. tel: [phone] Family History Family Member Type Diagnosis Age At Onset No Information Payers Payer name Insurance type Covered green party ID Authoriza tion(s) Medicaid [facility] [id number] Social History Type Description Quantity Date Captured [...]
--- OUTSIDE RECORDS SUMMARY | 2025-01-09 19:54 | XMS_ITS | Continuity of Care Document ---
Author Organization [facility] Address [address] [place] [address] Phone Care Team Providers Care Clean Energy Policy Analyst Name Role Phone Unavailable Unavailable Unavailable Allergies, Adverse Reactions, Alerts Substance Reaction Status Criticality No Known Allergies Active No Inform ation Medications Medication Instructions Dosage Effective Dates (start - stop) Status Comments citalopram 20 mg tablet take 1 tablet by oral route every day 20 MG - Active Procedures Procedure Date OFFICE/OUTPATIENT VISIT, [facility] Advance Directives Directive Yes / No Effective Date File Name No Information Encounters Encounter Description Practice Location Reason(s) For Visit Diagnoses Date Provider Providers Copied on Encounter [facility], [address] [place] [address], tel:[phone] [place] No Information 5 No Information [facility], [address] [place] [address], tel:[phone] [place] No Information No Information OFFICE/OUTPAT IENT VISIT, [facility], [address] [place] [address], tel:[phone] [place] TALK/ FOCUS PROBLEMS (chief complaint) Moderate anger reaction 5 No Information Family History Family Member Type Diagnosis Age At Onset Mother Problem (finding) Anxiety Mother Problem (finding) depression Payers Payer name Insurance type Covered libertarian ID Authoriza tion(s) No Information Social History [...]
--- NOTE | 2025-01-09 19:55 | PC.NURSE ---
1941-PATIENT WAS SEEN AT [facility] EARLI[facility] TODAY. WAS DIAGNOSED WITH NONINFECTIVE GASTROENTERITIS AND COLITIS, UNSPECIFIED. PATIENT PRESENT VIA EMS FOR C/O CONTINUED ABDOMINAL PAIN. PATIENT STATES I CAN'T TAKE THE PAIN ANYMORE. I WANT YOU TO KNOCK ME OUT. PATIENT DEMANDS IMMEDIATE ED BED PLACEMENT. PATIENT STATES I CAN'T BE SITTING IN A WHEELCHAIR. EXPLAINED TO PATIENT I DID NOT HAVE IMMEDIATE ED BED PLACEMENT AVAILABLE. PATIENT BECAME ANGRY AND STATED I WANT TO GO HOME NOW IF I CAN'T LAY DOWN. ENCOURAGED PATIENT TO STAY AND WAIT BUT PATIENT ADAMANT ABOUT GOING HOME. EMS IV REMOVED AND PRESSURE DRESSING APPLIED. PATIENT WAS TAKEN TO PRIVATE VEHICLE ACCOMPANIED BY RN. FAMILY MEMBER DRIVING VEHICLE. PATIENT JUMPED UP OUT OF WHEELCHAIR AND SAT IN FRONT PASSENGER SEAT OF VEHICLE.
== END 2025-01-09 20:25 | disposition left against medical advice (07) ==
LOC: ANHED 19:53
PROVIDERS: PCP Family Medicine
DX: Z53.21 Procedure and treatment not carried out due to patient leaving prior to being seen by health care provider (principal)
CPT/HCPCS: 99199